=== PATIENT | female | born 1950 | race Caucasian/White ===

== ENCOUNTER → 2020-01-01 08:58 | Outpatient (CLI) | payer MEDICARE, MEDICAID, SELFPAY ==
[2020-01-01 10:03] LABS: Alanine Aminotransferase 21 IU/L (<35); Albumin 4.3 g/dL (3.5-5.0); Albumin Globulin Ratio 1.3 (1.0-2.8); Alkaline Phosphatase 90 U/L (38-126); Aspartate Aminotransferase 32 IU/L (14-36); BUN Creatinine Ratio 24.2 (6-22); Bilirubin Total 0.5 mg/dL (0.2-1.3); Blood Urea Nitrogen 23 mg/dL (7-17); Calcium 9.3 mg/dL (8.4-10.2); Carbon Dioxide 23 mmol/L (22-32); Chloride 105 mmol/L (98-107); Cholesterol 141 mg/dL (140-199); Estimated Glomerular Filt Rate 58.5 mL/min (>60); Globulin 3.2 g/dL (1.7-4.1); Glucose 210 mg/dL (80-110); HDL Cholesterol 50 mg/dL (40-60); HEMOLYSIS < 15 (0-50); LDL Cholesterol Calculated 55 mg/dL (<100); Potassium 4.6 mmol/L (3.4-5.1); Sodium 138 mmol/L (137-145); Total Protein 7.5 g/dL (6.3-8.2); Triglycerides 181 mg/dL (35-150)
== END ==
PROVIDERS: Family Provider Nurse Practitioner Family; PCP Internal Medicine; Referring Provider Internal Medicine; Visit Provider Internal Medicine
DX: E11.42 Type 2 diabetes mellitus with diabetic polyneuropathy (principal); E78.5 Hyperlipidemia, unspecified; I10 Essential (primary) hypertension
CPT/HCPCS: 36415; 80053; 80061; 83036

== ENCOUNTER → 2020-07-14 08:38 | Outpatient (CLI) | payer MEDICARE, MEDICAID, SELFPAY ==
[2020-07-14 10:03] LABS: Hemoglobin A1C% w Est Avg Glu 8.7 % (4.0-6.0)
[2020-07-14 10:11] LABS: Add Manual Diff / Slide Review NO; Basophils Absolute Auto 200 /uL (0-100); Basophils Percent Auto 2.7 % (0-2); Eosinophils Absolute Auto 400 /uL (0-450); Eosinophils Percent Auto 5.8 % (2-4); Hematocrit 36.7 % (36-46); Hemoglobin 12.2 g/dL (12.0-16.0); Lymphocytes Absolute Auto 2600 /uL (1100-4500); Lymphocytes Percent Auto 43.5 % (25-40); Mean Corpuscular HGB Conc 33.1 % (30-36); Mean Corpuscular Hemoglobin 29.5 PG (26-34); Monocytes Absolute Auto 400 /uL (0-900); Monocytes Percent Auto 5.9 % (3-14); Neutrophils Absolute Auto 2500 /uL (1500-7000); Neutrophils Percent Auto 42.1 % (50-75); Platelet Count 116 X10^3/uL (150-400); Red Blood Cell Count 4.13 X10^6/uL (4.0-5.2); Red Cell Distribution Width 15.1 % (11.6-14.8)
[2020-07-14 10:30] LABS: Alanine Aminotransferase 23 IU/L (<35); Albumin 4.2 g/dL (3.5-5.0); Albumin Globulin Ratio 1.4 (1.0-2.8); Alkaline Phosphatase 67 U/L (38-126); Aspartate Aminotransferase 37 IU/L (14-36); BUN Creatinine Ratio 19.8 (6-22); Bilirubin Total 0.5 mg/dL (0.2-1.3); Blood Urea Nitrogen 21 mg/dL (7-17); Calcium 9.2 mg/dL (8.4-10.2); Carbon Dioxide 28 mmol/L (22-32); Chloride 102 mmol/L (98-107); Cholesterol 135 mg/dL (140-199); Estimated Glomerular Filt Rate 51.4 mL/min (>60); Globulin 3.1 g/dL (1.7-4.1); Glucose 166 mg/dL (80-110); HDL Cholesterol 46 mg/dL (40-60); HEMOLYSIS < 15 (0-50); LDL Cholesterol Calculated 50 mg/dL (<100); Potassium 4.3 mmol/L (3.4-5.1); Sodium 139 mmol/L (137-145); Total Protein 7.3 g/dL (6.3-8.2); Triglycerides 197 mg/dL (35-150)
[2020-07-14 11:51] LABS: Creatinine Urine Random 110.4 mg/dL
[2020-07-14 11:56] LABS: Microalbumi Creatinin Ratio Ur 16.3 ug/mg CR (<30); Microalbumin Urine Random 1.8 mg/dL (0-1.6)
== END ==
PROVIDERS: Family Provider Nurse Practitioner Family; PCP Registered Nurse; Referring Provider Registered Nurse; Visit Provider Registered Nurse
DX: E11.42 Type 2 diabetes mellitus with diabetic polyneuropathy (principal); D69.6 Thrombocytopenia, unspecified; E78.5 Hyperlipidemia, unspecified
CPT/HCPCS: 36415; 80053; 80061; 82043; 82570; 83036; 85025

== ENCOUNTER → 2020-08-04 09:25 | Outpatient (CLI) | payer MEDICARE, MEDICAID, SELFPAY ==
[2020-08-04 11:21] LABS: Alanine Aminotransferase 25 IU/L (<35); Albumin 4.5 g/dL (3.5-5.0); Albumin Globulin Ratio 1.3 (1.0-2.8); Alkaline Phosphatase 69 U/L (38-126); Aspartate Aminotransferase 39 IU/L (14-36); Bilirubin Total 0.5 mg/dL (0.2-1.3); Blood Urea Nitrogen 37 mg/dL (7-17); Calcium 9.2 mg/dL (8.4-10.2); Carbon Dioxide 26 mmol/L (22-32); Chloride 104 mmol/L (98-107); Estimated Glomerular Filt Rate 33.4 mL/min (>60); Globulin 3.5 g/dL (1.7-4.1); Glucose 168 mg/dL (80-110); HEMOLYSIS < 15 (0-50); Potassium 4.4 mmol/L (3.4-5.1); Sodium 139 mmol/L (137-145)
== END ==
PROVIDERS: Family Provider Nurse Practitioner Family; PCP Registered Nurse; Referring Provider Registered Nurse; Visit Provider Registered Nurse
DX: R89.9 Unspecified abnormal finding in specimens from other organs, systems and tissues (principal)
CPT/HCPCS: 36415; 80053

== ENCOUNTER 2020-08-04 09:42 | Emergency (ER) | payer MEDICARE, MEDICAID, SELFPAY ==
[2020-08-04 09:53] VITALS: BP 139/78; PULSE 74; RESP 14; TEMP 36.9; O2SAT 96; BMI 43.0
--- NOTE | 2020-08-04 09:54 | ED_ITS ---
HPI - General Adult General Chief complaint: Fall Stated complaint: left shoulder/elbow/neck injury today Time Seen by Provider: 08/04/20 09:53 History of Present Illness HPI narrative: 70-year-old woman with multiple medical problems including gait instability, chronic deconditioning, chronic dizziness with use of walker, diabetes, hypertension, hyperlipidemia, peripheral neuropathy was into the lab this morning to have routine blood drawn. Was feeling slightly dizzy after the blood draw and got all the way out almost to her car when she realized she left her walker in the lab. As she was coming back to get her walker just into the lab she became dizzy enough that she fell. She states that she landed on her knees, right shoulder and elbow and did hit the right parietal side of her head. She is not on blood thinners. She describes her foot basically getting caught on the linoleum and her global generalized weakness and dizziness as the etiology for the fall. She states that she has not had chest pain, dyspnea beyond her baseline, she notes that she is diaphoretic which has been a chronic issue for her and 1 of the reasons for which she is scheduled to see Hematology Oncology in the near future. She describes no specific fevers, abdominal pain, dysuria, headaches. Related Data Home Medications Medication Instructions Recorded Confirmed vitamin E 1,000 unit PO QDAY #0 12/18/16 07/06/20 metoprolol tartrate 25 mg tablet 25 mg PO BID 07/06/20 07/06/20 Previous Rx's Medication Instructions Recorded Lancets dev #100 09/17/12 Glucose: Test Strips 0 str SEE INSTRUCTIONS #100 12/04/12 cetirizine 10 mg PO QDAY #90 tab 05/28/17 pregabalin [Lyrica] 100 mg PO BID #180 cap 07/25/17 diphenhydramine HCl [Benadryl 50 mg PO HS #180 tab 08/20/17 Allergy] lisinopril [Zestril] 10 mg PO QDAY #90 tab 12/17/17 simvastatin 20 mg PO HS #90 tab 12/17/17 metformin 1,000 mg tablet 1,000 mg PO BID 90 Days #180 tab 07/06/20 insulin glargine 100 unit/mL 50 unit SUBCUT HS 90 Days #45 vial 07/16/20 subcutaneous solution Allergies Allergy/AdvReac Type Severity Reaction Status Date / Time amitriptyline [AMITRIPTYLINE] Allergy Mild Verified 08/04/20 10:46 levofloxacin [LEVOFLOXACIN] Allergy Mild Verified 08/04/20 10:46 Sulfa (Sulfonamide Allergy Mild rash Verified 08/04/20 10:46 Antibiotics) [SULFA (SULFONAMIDE ANTIBIOTICS)] adhesive tape [ADHESIVE TAPE] AdvReac Mild rash, Verified 08/04/20 10:46 adheses and pulls off flesh steroid Allergy Mild Uncoded 11/07/17 12:53 Review of Systems Review of Systems ROS Unobtainable: All systems reviewed & are unremarkable except as noted in HPI and below Patient History Medical History (Updated 08/04/20 @ 11:55 by Thalia Khan MD) Chronic pain syndrome (05/20/15) Diabetes Hyperlipidemia Type 2 diabetes mellitus with diabetic polyneuropathy (05/20/15) Surgical History History of carpal tunnel repair History of knee replacement History of repair of hiatal hernia History of spinal fusion S/P total abdominal hysterectomy and bilateral salpingo-oophorectomy Status post appendectomy Status post delivery Status post hemorrhoidectomy Status post laparoscopic cholecystectomy Status post tubal ligation Family History Father Hypertension Stroke Mother Cancer Social History Smoking Status: Former smoker Smoking Status: Former smoker Exam Narrative Exam Narrative: General: Morbid obesity, diaphoretic secondary to effort getting from wheelchair to the bed, complaining of pain in multiple areas, able to speak in full sentences HEENT: Moist mucous membranes, normal sclera with reactive pupils, Neck: No JVD, his tenderness at occipital insertions bilaterally and central tenderness at C7. Respiratory: Lungs are clear to auscultation, no wheezing no rales no rhonchi. Full and symmetrical air movement Cardiac: Regular rate and rhythm no murmurs no bruits Abdomen: Soft, obese, nontender good bowel tones, no flank pain Skin: Diaphoretic, no rashes Neurologic: Globally weak but Grossly neurologically intact with no obvious asymmetries or abnormalities Extremities: well perfused, no contusions to the head. Diffuse tenderness to the right shoulder without contusions or hematoma. Minor bruising to the right elbow and left elbow. Bruising over both knees with well-healed knee replacement scars. Tender to palpation right trochanter without hematoma or abrasions Psych: Cooperative, appropriate insight and affect Initial Vital Signs Initial Vital Signs: Vital Signs Temperature 98.4 F 08/04/20 09:53 Pulse Rate 74 08/04/20 09:53 Respiratory Rate 14 08/04/20 09:53 Blood Pressure 139/78 08/04/20 09:53 Pulse Oximetry 96 08/04/20 09:53 Course Orders Ordered: ED Orders 08/04/20 10:05 XR elbow RT 2V Stat XR shoulder RT min 2V Stat 08/04/20 10:06 CT cervical spine wo con Stat CT head/brain wo con Stat 08/04/20 10:12 XR hip w pel if done RT 2V Stat Discontinued Medications Oxycodone/Acetaminophen (Oxycodone/Acetaminophen 5/325 Tablet) 1 tab PO NOW ONE Stop: 08/04/20 10:13 Last Admin: 08/04/20 10:43 Dose: 1 tab Documented by: JULES Vital Signs Vital signs: Vital Signs - 8 hr 08/04/20 09:53 Temperature 98.4 F Pulse Rate 74 Respiratory Rate 14 Blood Pressure 139/78 Pulse Oximetry 96 Medical Decision Making Imaging Data X-ray pelvis hip right: Radiologist's Impression: FINDINGS: Bones: No fractures or dislocations. Pelvic ring appears intact. No suspicious bony lesions. Mild hip joint space narrowing and periarticular osteophyte formation bilaterally. Soft tissues: The visualized bowel gas pattern is normal. No suspicious soft tissue calcifications. IMPRESSION: Osteoarthritis. No acute fracture. No osseous lesion. If symptoms and/or clinical suspicion for pathology persist, further assessment with repeat, or advanced imaging (e.g., CT, MRI, or bone scan) may be helpful for further assessment. Dictated by: Pravin Ratliff M.D. on 08/04/2020 at 10:53 CT scan - head: Radiologist's Impression: FINDINGS: Image quality: Excellent. CSF spaces: Basal cisterns are patent. No extra-axial fluid collections. The ventricles are symmetric in size and shape. Brain: No intracranial bleeds or masses. There is mild cerebral volume loss for age, with resultant ventricular and sulcal prominence. There are mild periventricular and deep white matter chronic small vessel ischemic changes. There is intracranial internal carotid artery atherosclerosis. Skull and face: Calvarium and visualized facial bones appear intact, without suspicious lesions. Sinuses: Visualized sinuses and mastoids are clear. IMPRESSION: 1. No acute intracranial abnormalities. 2. Mild cerebral volume loss and chronic microvascular ischemic changes. Dictated by: Ranulfo Bustillos M.D. on 08/04/2020 at 10:43 CT - cervical spine: Radiologist's Impression: FINDINGS: Image quality: Excellent. Bones: No fractures or dislocations. Postsurgical changes with cervical spine fusion from C3 to T1. There is loss of cervical lordosis. Mild degenerative disease at C2-C3. Moderate atlantoaxial joint degeneration. Visualized superior ribs are intact. Soft tissues: Prevertebral soft tissues are normal in thickness. No paravertebral hematomas. No apical pneumothoraces. Bilateral carotid artery calcification consistent with atherosclerosis. IMPRESSION: 1. No acute cervical spine injury. 2. Degenerative and postsurgical changes in cervical spine. Dictated by: Ranulfo Bustillos M.D. on 08/04/2020 at 10:53 X-ray shoulder: Radiologist's Impression: FINDINGS: Bones: No fractures or dislocations. No suspicious bony lesions. Visualized ribs appear intact. Periarticular osteophyte formation at the acromioclavicular and glenohumeral joints. Soft tissues: No suspicious soft tissue calcifications. IMPRESSION: Osteoarthritis. No acute fracture. No osseous lesion. If symptoms and/or clinical suspicion for pathology persist, further assessment with repeat, or advanced imaging (e.g., CT, MRI, or bone scan) may be helpful for further assessment. Dictated by: Pravin Ratliff M.D. on 08/04/2020 at 10:53 X-ray elbow: Radiologist's Impression: FINDINGS: Bones: No fractures or dislocations. Mild degenerative joint disease in right elbow. No suspicious bony lesions. Soft tissues: No elbow joint effusion. No suspicious soft tissue calcifications. Soft tissue densities noted around elbow. IMPRESSION: 1. No acute osseous abnormalities visualized. 2. Soft tissue densities around elbow of uncertain clinical significance. Differential diagnosis include artifact, hematoma or mass. Recommend clinical correlation. If clinical symptoms persist or clinical suspicion for pathology is high, a repeat examination in 7-10 days, or advanced imaging such as CT or MRI is suggested for further evaluation. Dictated by: Ranulfo Bustillos M.D. on 08/04/2020 at 11:00 [facility] Narrative Medical decision making narrative: Mechanical fall in a 70-year-old woman happening on hospital property. No fractures. Comes in bruises to exacerbate her chronic pain and issues. She will be safe for home discharge Discharge Plan Departure Patient Disposition: Home Clinical Impression: Fall Qualifiers: Encounter type: initial encounter Qualified Code(s): W19.XXXA - Unspecified fal l, initial encounter Instructions: DI for Contusion Activity Restrictions/Additional Instructions: Thank you for coming in today I am so sorry that you fell. I am glad that you do have a walker to use, it is important to make sure that you keep track of it and actually use it. You can use Tylenol to help with the aches and pains that are likely going to be worse over the next 24 hours. Ice to any of the areas that are particularly sore may also be useful. Please feel free to follow-up with your primary care physician if you are noticing additional issues Prescriptions: No Action Lancets Qty: 100 RF: 0 Glucose: Test Strips 0 str SEE INSTRUCTIONS Qty: 100 RF: 2 vitamin E 1,000 UNIT capsule 1,000 unit PO QDAY Qty: 0 RF: 0 cetirizine 10 MG tablet 10 mg PO QDAY Qty: 90 RF: 3 pregabalin [Lyrica] 100 MG capsule 100 mg PO BID Qty: 180 RF: 1 diphenhydramine HCl [Benadryl Allergy] 25 MG tablet 50 mg PO HS Qty: 180 RF: 1 lisinopril [Zestril] 10 mg tablet 10 mg PO QDAY Qty: 90 RF: 3 simvastatin 20 mg tablet 20 mg PO HS Qty: 90 RF: 3 Lantus U-100 Insulin 100 unit/mL solution 50 unit SUBCUT HS 90 Days Qty: 45 RF: 1 metoprolol tartrate 25 mg tablet 25 mg PO BID RF: 0 metformin 1,000 mg tablet 1,000 mg PO BID 90 Days Qty: 180 RF: 0 Referrals: Jessica Borja ARNP [Primary Care Provider] -
--- NOTE | 2020-08-04 10:05 | DI.RAD.S_ITS ---
PROCEDURE: XR ELBOW RT 2V INDICATIONS: fall TECHNIQUE: 2 views of the elbow were acquired. COMPARISON: [facility], CR, HUMERUS 2V RIGHT, 08/02/2014, 15:05. [facility], CR, ELBOW 3+ VIEWS RIGHT, 08/02/2014, 15:05. [facility], CR, XR HIP W PEL IF DONE RT 2V, 08/04/2020, 10:26. [facility], CR, XR SHOULDER RT MIN 2V, 08/04/2020, 10:26. FINDINGS: Bones: No fractures or dislocations. Mild degenerative joint disease in right elbow. No suspicious bony lesions. Soft tissues: No elbow joint effusion. No suspicious soft tissue calcifications. Soft tissue densities noted around elbow. IMPRESSION: 1. No acute osseous abnormalities visualized. 2. Soft tissue densities around elbow of uncertain clinical significance. Differential diagnosis include artifact, hematoma or mass. Recommend clinical correlation. If clinical symptoms persist or clinical suspicion for pathology is high, a repeat examination in 7-10 days, or advanced imaging such as CT or MRI is suggested for further evaluation. Dictated by: Ranulfo Bustillos M.D. on 08/04/2020 at 11:00 Approved by: Ranulfo Bustillos M.D. on 08/04/2020 at 11:05
--- NOTE | 2020-08-04 10:05 | DI.RAD.S_ITS ---
PROCEDURE: XR SHOULDER RT MIN 2V INDICATIONS: fall, pain TECHNIQUE: 3 views of the shoulder were acquired. COMPARISON: [facility], , SHOULDER MINIMUM 2VIEW RIGHT, 08/02/2014, 15:05. FINDINGS: Bones: No fractures or dislocations. No suspicious bony lesions. Visualized ribs appear intact. Periarticular osteophyte formation at the acromioclavicular and glenohumeral joints. Soft tissues: No suspicious soft tissue calcifications. IMPRESSION: Osteoarthritis. No acute fracture. No osseous lesion. If symptoms and/or clinical suspicion for pathology persist, further assessment with repeat, or advanced imaging (e.g., CT, MRI, or bone scan) may be helpful for further assessment. Dictated by: Pravin Ratliff M.D. on 08/04/2020 at 10:53 Approved by: Pravin Ratliff M.D. on 08/04/2020 at 10:54
--- NOTE | 2020-08-04 10:06 | DI.CT.S_ITS ---
PROCEDURE: CT CERVICAL SPINE WO CON INDICATIONS: fall, tender C7 TECHNIQUE: Noncontrast 3 mm thick sections acquired from the skull base to the T4 level. Sagittal and coronal reformats were then constructed. For radiation dose reduction, the following was used: automated exposure control, adjustment of mA and/or kV according to patient size. COMPARISON: [facility], CT, C-SPINE WITHOUT CONTRAST, 09/11/2014, 8:03. [facility], , SPINE CERVICAL 2 OR 3VW, 06/17/2015, 11:31. FINDINGS: Image quality: Excellent. Bones: No fractures or dislocations. Postsurgical changes with cervical spine fusion from C3 to T1. There is loss of cervical lordosis. Mild degenerative disease at C2-C3. Moderate atlantoaxial joint degeneration. Visualized superior ribs are intact. Soft tissues: Prevertebral soft tissues are normal in thickness. No paravertebral hematomas. No apical pneumothoraces. Bilateral carotid artery calcification consistent with atherosclerosis. IMPRESSION: 1. No acute cervical spine injury. 2. Degenerative and postsurgical changes in cervical spine. Dictated by: Ranulfo Bustillos M.D. on 08/04/2020 at 10:53 Approved by: Ranulfo Bustillos M.D. on 08/04/2020 at 10:59
--- NOTE | 2020-08-04 10:06 | DI.CT.S_ITS ---
PROCEDURE: CT HEAD/BRAIN WO CON INDICATIONS: fall, hit head TECHNIQUE: Noncontrast 4.5 mm thick angled axial sections acquired from the foramen magnum to the vertex, with coronal and sagittal reformats. For radiation dose reduction, the following was used: automated exposure control, adjustment of mA and/or kV according to patient size. COMPARISON: [facility], CT, HEAD WITHOUT CONTRAST, 05/02/2015, 19:56. FINDINGS: Image quality: Excellent. CSF spaces: Basal cisterns are patent. No extra-axial fluid collections. The ventricles are symmetric in size and shape. Brain: No intracranial bleeds or masses. There is mild cerebral volume loss for age, with resultant ventricular and sulcal prominence. There are mild periventricular and deep white matter chronic small vessel ischemic changes. There is intracranial internal carotid artery atherosclerosis. Skull and face: Calvarium and visualized facial bones appear intact, without suspicious lesions. Sinuses: Visualized sinuses and mastoids are clear. IMPRESSION: 1. No acute intracranial abnormalities. 2. Mild cerebral volume loss and chronic microvascular ischemic changes. Dictated by: Ranulfo Bustillos M.D. on 08/04/2020 at 10:43 Approved by: Ranulfo Bustillos M.D. on 08/04/2020 at 10:45
--- NOTE | 2020-08-04 10:12 | DI.RAD.S_ITS ---
PROCEDURE: XR HIP W PEL IF DONE RT 2V INDICATIONS: fall TECHNIQUE: AP pelvis with lateral view(s) of the right hip(s). COMPARISON: None. FINDINGS: Bones: No fractures or dislocations. Pelvic ring appears intact. No suspicious bony lesions. Mild hip joint space narrowing and periarticular osteophyte formation bilaterally. Soft tissues: The visualized bowel gas pattern is normal. No suspicious soft tissue calcifications. IMPRESSION: Osteoarthritis. No acute fracture. No osseous lesion. If symptoms and/or clinical suspicion for pathology persist, further assessment with repeat, or advanced imaging (e.g., CT, MRI, or bone scan) may be helpful for further assessment. Dictated by: rPavin Ratliff M.D. on 08/04/2020 at 10:53 Approved by: Pravin Ratliff M.D. on 08/04/2020 at 10:53
[2020-08-04] MEDS: OXYCODONE/ACETAMINOPHEN 5/325 TABLET 1 TAB PO (10:43)
[2020-08-04 12:33] VITALS: BP 122/58; PULSE 63; RESP 18; O2SAT 96
== END 2020-08-04 12:35 | disposition home or self-care (01) ==
PROVIDERS: Emergency Provider Emergency Medicine; Family Provider Nurse Practitioner Family; PCP Registered Nurse
DX: R42 Dizziness and giddiness (principal); S50.01XA Contusion of right elbow, initial encounter; S49.91XA Unspecified injury of right shoulder and upper arm, initial encounter; W18.30XA Fall on same level, unspecified, initial encounter; Y92.232 Corridor of hospital as the place of occurrence of the external cause; D69.6 Thrombocytopenia, unspecified
CPT/HCPCS: 70450; 72125; 73030; 73070; 73502; 99214; 99284

== ENCOUNTER → 2020-08-25 16:20 | Oncology outpatient (ONC) | payer MEDICARE, MEDICAID, SELFPAY ==
[2020-08-04 15:27] VITALS: BP 147/81; PULSE 80; RESP 18; TEMP 36.8; O2SAT 96
--- NOTE | 2020-08-04 15:51 | ONC.CONS ---
History of Present Illness - Data of Consult Primary Care Provider: ALTON Gibbons - Consult Narrative Narrative: Shae Francis is a 70 year old female who is referred for further evaluation of thrombocytopenia. Review of her records shows that she was 1st noted to have a low platelet count in September of 2009. Since that time she has had some platelet counts in the 150 to 184834 range but the vast majority of her platelets have been between 100 and 150,000. She had transient worsening in April of 2015 when she got down as low as 53,000 but from mid April 2015 on she has not had any counts below 100,000. Her white count has generally been normal. She has been anemic at times but most of her hemoglobins have been normal, as well. In June of 2020 she had a CBC with a white count of 6000, hemoglobin 12.2 hematocrit 36.7 and platelets a [id number]. She is now referred for hematology consultation. She denies issues with bleeding from her nose, gums, bowels or urine. She does not have a history of easy bruising. She does not recall ever being treated for thrombocytopenia. She has a chronic pain syndrome for which she is on Lyrica. She has a cough that she attributes to smoking marijuana for her pain. She states that she had been generally feeling good for the last several months but has been more tired over the past month. She denies other new pain, bleeding, localized weakness, fever, chills, nausea, vomiting or shortness of breath. All other systems are negative. Past medical history 1. Previous surgeries include carpal tunnel release, bilateral knee replacements, hiatal hernia repair, spinal fusion, 3 neck surgeries, JULIAN/BSO, appendectomy, section, hemorrhoidectomy, cholecystectomy and tubal ligation 2. There is a family history of liver cancer in her mother but no other family history of blood disorder or malignancy 3. Diabetes 4. Hyperlipidemia 5. Chronic pain syndrome 6. High blood pressure 7. She is a former 1-2 pack-a-day smoker who quit in December of 2017. She is a former drinker who quit 30 years ago. 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 CC: Danish Guerrero MD Home Medications and Allergies Home Medications Medication Instructions Recorded Confirmed Type Lancets dev #100 09/17/12 07/06/20 Rx Glucose: Test Strips 0 str SEE INSTRUCTIONS #100 12/04/12 08/04/20 Rx cetirizine 10 mg PO QDAY #90 tab 05/28/17 08/04/20 Rx pregabalin [Lyrica] 100 mg PO BID #180 cap 07/25/17 08/04/20 Rx diphenhydramine HCl [Benadryl 50 mg PO HS #180 tab 08/20/17 07/06/20 Rx Allergy] lisinopril [Zestril] 10 mg PO QDAY #90 tab 12/17/17 08/04/20 Rx simvastatin 20 mg PO HS #90 tab 12/17/17 08/04/20 Rx metformin 1,000 mg tablet 1,000 mg PO BID 90 Days #180 tab 07/06/20 08/04/20 Rx metoprolol tartrate 25 mg tablet 25 mg PO BID 07/06/20 08/04/20 History insulin glargine 100 unit/mL 50 unit SUBCUT HS 90 Days #45 vial 07/16/20 08/04/20 Rx subcutaneous solution ibuprofen [Advil] 200 mg PRN PRN 08/04/20 08/04/20 History [id number]-[id number] acid-lutein [Centrum 1 tab PO DAILY 08/04/20 08/04/20 History Silver] Allergies Allergy/AdvReac Type Severity Reaction Status Date / Time amitriptyline [AMITRIPTYLINE] Allergy Mild Verified 08/04/20 10:46 levofloxacin [LEVOFLOXACIN] Allergy Mild Verified 08/04/20 10:46 Sulfa (Sulfonamide Allergy Mild rash Verified 08/04/20 10:46 Antibiotics) [SULFA (SULFONAMIDE ANTIBIOTICS)] adhesive tape [ADHESIVE TAPE] AdvReac Mild rash, Verified 08/04/20 10:46 adheses and pulls off flesh steroid Allergy Mild Uncoded 11/07/17 12:53 Medical History - Medical, Surgical, Family History Medical History: Medical History (Last Updated 08/04/20 @ 10:18 by Thalia Khan MD) Chronic pain syndrome Onset Date: 05/20/15 Diabetes Hyperlipidemia Type 2 diabetes mellitus with diabetic polyneuropathy Onset Date: 05/20/15 Surgical History: Surgical History (Last Reviewed 08/04/20 @ 10:16 by Thalia Khan MD) History of carpal tunnel repair History of knee replacement History of repair of hiatal hernia History of spinal fusion S/P total abdominal hysterectomy and bilateral salpingo-oophorectomy Status post appendectomy Status post delivery Status post hemorrhoidectomy Status post laparoscopic cholecystectomy Status post tubal ligation Family History: Family History (Last Reviewed 08/04/20 @ 10:16 by Thalia Khan MD) Father Hypertension Stroke Mother Cancer - Social History Smoking Status: Former smoker Review of Systems - Patient Self-Reported Symptoms SR Constitution: Fever, Chills, Fatigue/Malaise, Night Sweats SR ears, nose, mouth, throat issues: Cough SR respiratory issues: Cough SR Neuro issues: Headache Exam Vital signs: Vital Signs Temp Pulse Resp BP Pulse Ox 08/04/20 15:27 98.2 F 80 18 147/81 H 96 Intake and Output 08/03/20 08/04/20 08/04/20 23:59 07:59 15:59 Other: Weight 107.9 kg Patient Weight 08/04/20 23:59 Weight 107.9 kg Narrative: She was awake, alert and oriented x3. She walked with a walker. There was no lymphadenopathy in the cervical, supraclavicular axillary regions. Lungs were clear without wheezes or rales. Heart showed a regular rate and rhythm without murmur, gallop or rub. The abdomen was soft and nontender without organomegaly or masses. Results - Imaging Additional studies: Procedures ANESTH INJEC PERIPH NERV (10/20/09) Closure of skin and subcutaneous tissue of other sites (07/08/14) Excision of intervertebral disc (09/04/14) Fusion of Lumbar Vertebral Joint with Interbody Fusion Device, Anterior Approach, Anterior Column, Open Approach (08/17/15) Fusion of Lumbosacral Joint with Interbody Fusion Device, Posterior Approach, Anterior Column, Open Approach (08/17/15) Fusion or refusion of 2-3 vertebrae (09/04/14) Injection or infusion of other therapeutic or prophylactic substance (07/11/14) Insertion of Endotracheal Airway into Trachea, Via Natural or Artificial Opening (05/02/15) Insertion of Infusion Device into Left Internal Jugular Vein, Percutaneous Approach (05/02/15) Insertion of interbody spinal fusion device (09/04/14) MANUAL RUPT JOINT ADHES (10/20/09) Other cervical fusion of the anterior column, anterior technique (09/04/14) Other operations on bone marrow (09/04/14) Other vaccination and inoculation (11/27/12) Respiratory Ventilation, 24-96 Consecutive Hours (05/02/15) TOTAL KNEE REPLACEMENT (10/20/09) Venous catheterization, not elsewhere classified (09/04/14) Assessment and Plan (1) Thrombocytopenia Status: Acute Ms. Francis has thrombocytopenia dating back to 2008. Her counts prior to that were normal. Since 2008 most of her counts have been between 100 and 150,000. She does not have a clinical bleeding history or current clinical bleeding diathesis. Her other blood elements have generally been normal and were normal on her most recent CBCs. We discussed potential causes of this. She is not on any medications that would be likely culprits that should this time frame. She does not have any clinical findings that would suggest an underlying lymphoproliferative disorder or bone marrow infiltrative process. A myelodysplastic syndrome can result in thrombocytopenia but this has been present for almost 11 years without significant deterioration of her red cells or white cells making it unlikely. Chronic ITP can present in this fashion. This is a diagnosis of exclusion but is not an uncommon condition. Anti phospholipid antibody syndrome can also present with thrombocytopenia. She does not have any history of clots but screening coagulation studies would be appropriate. New She will have screening labs done today. If there are any abnormalities will pursue them accordingly. She will return in about 2 weeks to review results. If her screening labs are normal, observation would likely be the best approach. I think the yield of bone marrow examination would be very low unless we see something in her screening labs to indicate an issue. Impression 1. Mild thrombocytopenia dating to at least October of 2008 with fluctuating platelet counts since then, most counts between 100 and 150,000 2. White count and white cell differential have generally been normal. 3. She has had episodic anemia but none recently 4. No clinical findings to suggest an underlying lymphoproliferative disorder 5. She is on no obvious medications that would result in this condition 6. She does not have a clinical bleeding diathesis Recommendations: 1. CBC with manual diff 2. Review of peripheral smear 3. Vitamin B12 and folate levels 4. Coagulation studies 5. Return afterwards for review of results I spent 14 minutes in preparation in chart review, 28 minutes with the patient, 4 minutes ordering tests, and 9 minutes in documentation for total of 55 minutes.
--- NOTE | 2020-08-05 14:13 | ONC.SCHED ---
Mary working on PA for specialty labs
[2020-08-06 09:16] LABS: Hematocrit 38.4 % (36-46); Hemoglobin 12.8 g/dL (12.0-16.0); Mean Corpuscular HGB Conc 33.4 % (30-36); Mean Corpuscular Hemoglobin 33.1 PG (26-34); Mean Corpuscular Volume 99.1 fL (80-100); Platelet Count 137 X10^3/uL (150-400); Red Blood Cell Count 3.87 X10^6/uL (4.0-5.2); Red Cell Distribution Width 15.1 % (11.6-14.8); Reticulocyte Count, Percent 2.2 % (1.06-2.63); White Blood Cell Count 6.9 X10^3/uL (4.5-11.0)
[2020-08-06 09:22] LABS: Fibrinogen 319 mg/dL (211-428); Prothrombin Time 11.5 SECONDS (10.1-12.7)
[2020-08-06 09:24] LABS: PTT Partial Thromboplastin Tim 31 SECONDS (26.4-36.2)
[2020-08-06 09:35] LABS: Neutrophils Absolute Manual 3243 /uL (3000-5900); RBC Morphology Normal Morphology; Total Cells Counted 100
[2020-08-06 10:31] LABS: Folate > 20.0 ng/mL (2.76-20.0); Vitamin B12 751 pg/mL (239-931)
--- NOTE | 2020-08-10 13:36 | ONC.SCHED ---
Patient had specialty labs drawn without PA checked. Went straight to the lab before I could check them.
[2020-08-25 16:09] VITALS: BP 115/71; PULSE 65; RESP 18; TEMP 36.6; O2SAT 96
--- NOTE | 2020-08-25 17:53 | ONC.PN ---
PN -Subjective Interval history: Shae Francis is a 70 year old female who presents for follow-up of thrombocytopenia. Review of her records shows that she was 1st noted to have a low platelet count in September of 2009. Since that time she has had some platelet counts in the 150 to [id number] range but the vast majority of her platelets have been between 100 and 150,000. She had transient worsening in April of 2015 when she got down as low as 53,000 but from mid April 2015 on she has not had any counts below 100,000. Her white count has generally been normal. She has been anemic at times but most of her hemoglobins have been normal, as well. In June of 2020 she had a CBC with a white count of 6000, hemoglobin 12.2 hematocrit 36.7 and platelets a [id number]. She was referred for hematology consultation, had testing done, and returns today to review results. She denies issues with bleeding from her nose, gums, bowels or urine. She does not have a history of easy bruising. She does not recall ever being treated for thrombocytopenia. She has a chronic pain syndrome for which she is on Lyrica. She has a cough that she attributes to smoking marijuana for her pain. She states that she had been generally feeling good for the last several months but has been more tired over the past month. She denies other new pain, bleeding, localized weakness, fever, chills, nausea, vomiting or shortness of breath. All other systems are negative. Past medical history 1. Previous surgeries include carpal tunnel release, bilateral knee replacements, hiatal hernia repair, spinal fusion, 3 neck surgeries, JULIAN/BSO, appendectomy, section, hemorrhoidectomy, cholecystectomy and tubal ligation 2. There is a family history of liver cancer in her mother but no other family history of blood disorder or malignancy 3. Diabetes 4. Hyperlipidemia 5. Chronic pain syndrome 6. High blood pressure 7. She is a former 1-2 pack-a-day smoker who quit in December of 2017. She is a former drinker who quit 30 years ago. 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 - Patient Self-Reported Symptoms SR Constitution: Chills, Fatigue/Malaise, Night Sweats SR ears, nose, mouth, throat issues: Cough SR respiratory issues: Cough, Shortness of breath SR Gastrointestinal issues: Poor or no appetite, Diarrhea SR Neuro issues: Headache SR Endocrine issues: Hot flashes Home Medications and Allergies Home Medications Medication Instructions Recorded Confirmed Type Lancets dev #100 09/17/12 07/06/20 Rx Glucose: Test Strips 0 str SEE INSTRUCTIONS #100 12/04/12 08/25/20 Rx cetirizine 10 mg PO QDAY #90 tab 05/28/17 08/04/20 Rx pregabalin [Lyrica] 100 mg PO BID #180 cap 07/25/17 08/25/20 Rx diphenhydramine HCl [Benadryl 50 mg PO HS #180 tab 08/20/17 08/25/20 Rx Allergy] lisinopril [Zestril] 10 mg PO QDAY #90 tab 12/17/17 08/25/20 Rx simvastatin 20 mg PO HS #90 tab 12/17/17 08/25/20 Rx metoprolol tartrate 25 mg tablet 25 mg PO BID 07/06/20 08/25/20 History ibuprofen [Advil] 200 mg PRN PRN 08/04/20 08/25/20 History [id number] acid-lutein [Centrum 1 tab PO DAILY 08/04/20 08/25/20 History Silver] insulin glargine 100 unit/mL 55 unit SUBCUT HS 90 Days #49.5 08/05/20 08/25/20 Rx subcutaneous solution vial metformin 1,000 mg tablet 1,000 mg PO DAILY 90 Days #90 tab 08/05/20 08/25/20 Rx Allergies Allergy/AdvReac Type Severity Reaction Status Date / Time amitriptyline [AMITRIPTYLINE] Allergy Mild Verified 08/04/20 10:46 levofloxacin [LEVOFLOXACIN] Allergy Mild Verified 08/04/20 10:46 Sulfa (Sulfonamide Allergy Mild rash Verified 08/04/20 10:46 Antibiotics) [SULFA (SULFONAMIDE ANTIBIOTICS)] adhesive tape [ADHESIVE TAPE] AdvReac Mild rash, Verified 08/04/20 10:46 adheses and pulls off flesh steroid Allergy Mild Uncoded 11/07/17 12:53 Exam Vital signs: Vital Signs Temp Pulse Resp BP Pulse Ox 08/25/20 16:09 98 F 65 18 115/71 96 Intake and Output 08/25/20 08/25/20 08/25/20 07:59 15:59 23:59 Other: Weight 106 kg Patient Weight 08/25/20 23:59 Weight 106 kg Narrative: She was awake, alert and oriented x3. She walked with a walker. Results - Labs Laboratory Last Values WBC 6.9 X10^3/uL (4.5-11.0) 08/06/20 08:37 RBC 3.87 X10^6/uL (4.0-5.2) L 08/06/20 08:37 Hgb 12.8 g/dL (12.0-16.0) 08/06/20 08:37 Hct 38.4 % (36-46) 08/06/20 08:37 MCV 99.1 fL (80-100) 08/06/20 08:37 MCH 33.1 PG (26-34) 08/06/20 08:37 MCHC 33.4 % (30-36) 08/06/20 08:37 RDW 15.1 % (11.6-14.8) H 08/06/20 08:37 Plt Count 137 X10^3/uL (150-400) L 08/06/20 08:37 Total Counted 100 08/06/20 08:37 Seg Neutrophils % 46.0 % (38-70) 08/06/20 08:37 Band Neutrophils % 1.0 % (3-7) L 08/06/20 08:37 Lymphocytes % (Manual) 43.0 % (25-45) 08/06/20 08:37 Atypical Lymphs % 4.0 % (-0) H 08/06/20 08:37 Monocytes % (Manual) 1.0 % (2-11) L 08/06/20 08:37 Eosinophils % (Manual) 4.0 % (2-4) 08/06/20 08:37 Basophils % (Manual) 1.0 % (0-1) 08/06/20 08:37 Neutrophils # (Manual) 3243 /uL (4544-8439) 08/06/20 08:37 Plt Morphology Comment 08/06/20 08:37 RBC Morphology Normal morphology 08/06/20 08:37 Smear Path Review 08/06/20 08:37 Percent Retic 2.2 % (1.06-2.63) 08/06/20 08:37 PT 11.5 SECONDS (10.1-12.7) 08/06/20 08:37 INR 1.0 (0.9-1.3) 08/06/20 08:37 APTT 31 SECONDS (26.4-36.2) 08/06/20 08:37 Fibrinogen 319 mg/dL (211-428) 08/06/20 08:37 Vitamin B12 751 pg/mL (239-931) 08/06/20 08:37 Folate > 20.0 ng/mL (2.76-20.0) H 08/06/20 08:37 - Imaging Additional studies: Procedures ANESTH INJEC PERIPH NERV (10/20/09) Closure of skin and subcutaneous tissue of other sites (07/08/14) Excision of intervertebral disc (09/04/14) Fusion of Lumbar Vertebral Joint with Interbody Fusion Device, Anterior Approach, Anterior Column, Open Approach (08/17/15) Fusion of Lumbosacral Joint with Interbody Fusion Device, Posterior Approach, Anterior Column, Open Approach (08/17/15) Fusion or refusion of 2-3 vertebrae (09/04/14) Injection or infusion of other therapeutic or prophylactic substance (07/11/14) Insertion of Endotracheal Airway into Trachea, Via Natural or Artificial Opening (05/02/15) Insertion of Infusion Device into Left Internal Jugular Vein, Percutaneous Approach (05/02/15) Insertion of interbody spinal fusion device (09/04/14) MANUAL RUPT JOINT ADHES (10/20/09) Other cervical fusion of the anterior column, anterior technique (09/04/14) Other operations on bone marrow (09/04/14) Other vaccination and inoculation (11/27/12) Respiratory Ventilation, 24-96 Consecutive Hours (05/02/15) TOTAL KNEE REPLACEMENT (10/20/09) Venous catheterization, not elsewhere classified (09/04/14) Assessment and Plan (1) Thrombocytopenia Status: Acute Ms. Francis has thrombocytopenia dating back to 2008. Her counts prior to that were normal. Since 2008 most of her counts have been between 100 and 150,000. She does not have a clinical bleeding history or current clinical bleeding diathesis. Her other blood elements have generally been normal and were normal on her most recent CBCs. Screening laboratory studies including vitamin B12, folic acid, reticulocyte count, and peripheral smear review are normal. Her white cell differential shows 1 band in for atypical lymphocytes but her overall lymphocyte percentage and absolute lymphocyte count are normal. Overall, she does not have evidence of a significant underlying bone marrow disorder or lymphoproliferative disorder to explain her mild, asymptomatic, chronically stable thrombocytopenia. I told her that I did not think any further workup was indicated at this time. She should have an annual CBC. Should her counts worsen over time would be happy to see her back at any point. She would like to have this done under the direction of her primary physician and I will send a copy of today's note to her. Impression 1. Mild thrombocytopenia dating to at least October of 2008 with fluctuating platelet counts since then, most counts between 100 and 150,000 2. White count and white cell differential have generally been normal. 3. She has had episodic anemia but none recently 4. No clinical findings to suggest an underlying lymphoproliferative disorder 5. Screening laboratories are unrevealing Recommendations: 1. No additional workup is indicated at this time 2. She should have an annual CBC would like to have this done under the direction of her primary care provider 3. Although no specific return appointment has been scheduled to this office I would be happy to see her again at any time in the future. I spent 8 minutes in preparation in chart review, 18 minutes with the patient, and 6 minutes in documentation for total of 32 minutes.
== END ==
PROVIDERS: Family Provider Nurse Practitioner Family; PCP Registered Nurse; Referring Provider Registered Nurse; Visit Provider Internal Medicine
DX: D69.6 Thrombocytopenia, unspecified (principal); E11.9 Type 2 diabetes mellitus without complications; I10 Essential (primary) hypertension; E78.5 Hyperlipidemia, unspecified; G89.4 Chronic pain syndrome; Z79.4 Long term (current) use of insulin; Z87.891 Personal history of nicotine dependence
CPT/HCPCS: 36415; 82607; 82746; 85025; 85045; 85384; 85610; 85730; 99204; 99214

== ENCOUNTER → 2020-08-27 11:04 | Outpatient (CLI) | payer MEDICARE, MEDICAID, SELFPAY ==
[2020-08-27] MEDS: COVID-19 VACC #1, MRNA(MOD) 100 MCG/0.5 ML VIAL IM (11:11)
== END ==
PROVIDERS: Family Provider Nurse Practitioner Family; PCP Registered Nurse; Visit Provider Internal Medicine
DX: Z23 Encounter for immunization (principal)
CPT/HCPCS: 0011A; 91301

== ENCOUNTER → 2020-09-21 09:25 | Outpatient (CLI) | payer MEDICARE, MEDICAID, SELFPAY ==
[2020-09-21 10:25] LABS: Cholesterol 154 mg/dL (140-199); HDL Cholesterol 46 mg/dL (40-60); LDL Cholesterol Calculated 70 mg/dL (<100); Triglycerides 188 mg/dL (35-150)
== END ==
PROVIDERS: Family Provider Nurse Practitioner Family; PCP Registered Nurse; Referring Provider Registered Nurse; Visit Provider Registered Nurse
DX: E11.42 Type 2 diabetes mellitus with diabetic polyneuropathy (principal); E78.5 Hyperlipidemia, unspecified
CPT/HCPCS: 36415; 80061; 83036

== ENCOUNTER → 2020-09-24 12:01 | Outpatient (CLI) | payer MEDICARE, MEDICAID, SELFPAY ==
[2020-09-24] MEDS: COVID-19 VACC #2, MRNA(MOD) 100 MCG/0.5 ML VIAL IM (12:11)
== END ==
PROVIDERS: Family Provider Nurse Practitioner Family; PCP Registered Nurse; Visit Provider Internal Medicine
DX: Z23 Encounter for immunization (principal)
CPT/HCPCS: 0012A; 91301

== ENCOUNTER → 2020-10-06 13:06 | Outpatient (CLI) | payer MEDICARE, MEDICAID, SELFPAY ==
[2020-10-06 14:19] LABS: BUN Creatinine Ratio 18.2 (6-22); Blood Urea Nitrogen 20 mg/dL (7-17); Calcium 9.7 mg/dL (8.4-10.2); Carbon Dioxide 28 mmol/L (22-32); Chloride 102 mmol/L (98-107); Creatine Kinase 74 U/L (30-135); Estimated Glomerular Filt Rate 49.2 mL/min (>60); Glucose 326 mg/dL (80-110); HEMOLYSIS < 15 (0-50); Phosphorous 4.7 mg/dL (2.8-4.1); Potassium 4.5 mmol/L (3.4-5.1); Sodium 137 mmol/L (137-145); Uric Acid 6.2 mg/dL (2.5-6.2)
[2020-10-07 08:27] LABS: Parathyroid Hormone Int 52 pg/mL (15-65)
== END ==
PROVIDERS: Family Provider Nurse Practitioner Family; PCP Registered Nurse; Referring Provider Internal Medicine Nephrology; Visit Provider Internal Medicine Nephrology
DX: N17.9 Acute kidney failure, unspecified (principal)
CPT/HCPCS: 36415; 80048; 81001; 82043; 82550; 82570; 83970; 84100; 84300; 84550; 87086

== ENCOUNTER → 2020-10-06 17:37 | Outpatient (CLI) | payer MEDICARE, MEDICAID, SELFPAY ==
[2020-10-06 17:44] LABS: RBC Urine None Seen (0-5/HPF)
[2020-10-06 18:05] LABS: Appearance Urine UA CLEAR; Bilirubin Urine UA NEGATIVE (NEGATIVE); Color Urine UA YELLOW; Glucose Urine UA 1+ g/dL (Negative); Ketones Urine UA NEGATIVE (NEGATIVE); Leukocyte Esterase Urine UA 1+ (NEGATIVE); Nitrite Urine UA NEGATIVE (Negative); Occult Blood Urine UA NEGATIVE (Negative); Protein Urine UA NEGATIVE (Negative); Specific Gravity Urine UA >=1.030 (1.000-1.035); Urobilinogen Urine UA 0.2 E.U./dL (0.2)
[2020-10-06 18:12] LABS: Amorphous Sediment Urine 1+; Squamous Epithelial Cell Urine 5-10 /HPF (0-5/HPF); WBC Urine 10-30/HPF (0-5/HPF)
[2020-10-06 18:13] LABS: Bacteria Urine Moderate (10-30); Culture Indicated Urine Specimen Cultured; Mucus Urine 1+ (Negative)
[2020-10-06 18:45] LABS: Creatinine Urine Random 142.4 mg/dL; Sodium Urine Random 143 mmol/L (30-90)
[2020-10-06 18:50] LABS: Microalbumi Creatinin Ratio Ur 26.6 ug/mg CR (<30); Microalbumin Urine Random 3.8 mg/dL (0-1.6)
== END ==
PROVIDERS: Family Provider Nurse Practitioner Family; PCP Registered Nurse; Referring Provider Physician Assistant; Visit Provider Physician Assistant
DX: N17.9 Acute kidney failure, unspecified (principal)
CPT/HCPCS: 81001; 82043; 82570; 84300; 87086

== ENCOUNTER → 2021-01-11 08:21 | Outpatient (CLI) | payer MEDICARE, MEDICAID, SELFPAY ==
[2021-01-11 10:14] LABS: Alanine Aminotransferase 20 IU/L (<35); Albumin 4.3 g/dL (3.5-5.0); Albumin Globulin Ratio 1.4 (1.0-2.8); Alkaline Phosphatase 63 U/L (38-126); Aspartate Aminotransferase 36 IU/L (14-36); BUN Creatinine Ratio 18.5 (6-22); Bilirubin Total 0.7 mg/dL (0.2-1.3); Blood Urea Nitrogen 22 mg/dL (7-17); Calcium 9.7 mg/dL (8.4-10.2); Carbon Dioxide 24 mmol/L (22-32); Chloride 105 mmol/L (98-107); Cholesterol 119 mg/dL (140-199); Glucose 142 mg/dL (80-110); HDL Cholesterol 42 mg/dL (40-60); HEMOLYSIS < 15 (0-50); LDL Cholesterol Calculated 33 mg/dL (<100); Potassium 4.2 mmol/L (3.4-5.1); Sodium 140 mmol/L (137-145); Total Protein 7.3 g/dL (6.3-8.2); Triglycerides 222 mg/dL (35-150)
[2021-01-11 16:06] LABS: Bilirubin Urine UA NEGATIVE (NEGATIVE); Color Urine UA YELLOW; Glucose Urine UA NEGATIVE (Negative); Ketones Urine UA NEGATIVE (NEGATIVE); Leukocyte Esterase Urine UA 2+ (NEGATIVE); Nitrite Urine UA NEGATIVE (Negative); Occult Blood Urine UA TRACE-LYSED (Negative); Protein Urine UA NEGATIVE (Negative); Specific Gravity Urine UA 1.025 (1.000-1.035); Urobilinogen Urine UA 0.2 E.U./dL (0.2)
[2021-01-11 16:14] LABS: Appearance Urine UA Slightly Cloudy
[2021-01-11 16:15] LABS: Amorphous Sediment Urine 1+; Bacteria Urine Many (>30); RBC Urine 0-1/HPF (0-5/HPF); Squamous Epithelial Cell Urine 5-10 /HPF (0-5/HPF); WBC Urine 30-100/HPF (0-5/HPF)
[2021-01-11 16:16] LABS: Culture Indicated Urine Specimen Cultured; Mucus Urine 1+ (Negative)
[2021-01-11 16:35] LABS: Creatinine Urine Random 167.6 mg/dL
[2021-01-11 16:38] LABS: Microalbumi Creatinin Ratio Ur 11.3 ug/mg CR (<30); Microalbumin Urine Random 1.9 mg/dL (0-1.6)
[2021-01-14 11:10] LABS: Renin Activity 0.945 ng/mL/hr (0.167-5.380)
== END ==
PROVIDERS: Family Provider Nurse Practitioner Family; PCP Student in an Organized Health Care Education/Training Program; Referring Provider Internal Medicine Endocrinology, Diabetes & Metabolism; Visit Provider Internal Medicine Endocrinology, Diabetes & Metabolism
DX: N17.9 Acute kidney failure, unspecified (principal); E11.42 Type 2 diabetes mellitus with diabetic polyneuropathy; Z79.4 Long term (current) use of insulin
CPT/HCPCS: 36415; 80053; 80061; 81001; 82043; 82088; 82570; 83036; 83835; 84244; 87077; 87086; 87186

== ENCOUNTER → 2021-01-13 13:11 | Outpatient (CLI) | payer MEDICARE, MEDICAID, SELFPAY ==
[2021-01-18 19:07] LABS: Cortisol Fr ug/24hr urine 10 ug/24 hr (6-42); Cortisol, Free, Urine 17 ug/L (Undefined)
== END ==
PROVIDERS: Family Provider Nurse Practitioner Family; PCP Student in an Organized Health Care Education/Training Program; Referring Provider Internal Medicine Endocrinology, Diabetes & Metabolism; Visit Provider Internal Medicine Endocrinology, Diabetes & Metabolism
DX: E11.42 Type 2 diabetes mellitus with diabetic polyneuropathy (principal); Z79.4 Long term (current) use of insulin; N17.9 Acute kidney failure, unspecified
CPT/HCPCS: 82530

== ENCOUNTER → 2021-03-02 15:52 | Outpatient (CLI) | payer MEDICARE, MEDICAID, SELFPAY ==
[2021-03-02 16:11] LABS: Add Manual Diff / Slide Review NO; Basophils Absolute Auto 0 /uL (0-100); Basophils Percent Auto 0.2 % (0-2); Eosinophils Absolute Auto 400 /uL (0-450); Eosinophils Percent Auto 4.8 % (2-4); Hematocrit 38.9 % (36-46); Hemoglobin 12.8 g/dL (12.0-16.0); Lymphocytes Absolute Auto 3200 /uL (1100-4500); Lymphocytes Percent Auto 41.1 % (25-40); Mean Corpuscular HGB Conc 33.1 % (30-36); Mean Corpuscular Hemoglobin 29.1 PG (26-34); Monocytes Absolute Auto 400 /uL (0-900); Monocytes Percent Auto 4.7 % (3-14); Neutrophils Absolute Auto 3900 /uL (1500-7000); Neutrophils Percent Auto 49.2 % (50-75); Platelet Count 125 X10^3/uL (150-400); Red Blood Cell Count 4.42 X10^6/uL (4.0-5.2); Red Cell Distribution Width 15.8 % (11.6-14.8); White Blood Cell Count 7.8 X10^3/uL (4.5-11.0)
[2021-03-02 16:42] LABS: Alanine Aminotransferase 23 IU/L (<35); Albumin 4.5 g/dL (3.5-5.0); Albumin Globulin Ratio 1.2 (1.0-2.8); Alkaline Phosphatase 52 U/L (38-126); Aspartate Aminotransferase 46 IU/L (14-36); BUN Creatinine Ratio 21.2 (6-22); Bilirubin Total 0.7 mg/dL (0.2-1.3); Blood Urea Nitrogen 31 mg/dL (7-17); Calcium 10.1 mg/dL (8.4-10.2); Carbon Dioxide 23 mmol/L (22-32); Chloride 107 mmol/L (98-107); Creatine Kinase 146 U/L (30-135); Estimated Glomerular Filt Rate 35.5 mL/min (>60); Globulin 3.7 g/dL (1.7-4.1); Glucose 109 mg/dL (80-110); HEMOLYSIS < 15 (0-50); Potassium 4.8 mmol/L (3.4-5.1); Sodium 141 mmol/L (137-145); Total Protein 8.2 g/dL (6.3-8.2)
[2021-03-02 16:53] LABS: NT-proBNP (BNP-Adult 18+) 155 pg/mL (<125); Troponin I < 0.012 ng/mL (0.01-0.034)
[2021-03-02 16:58] LABS: CKMB % Relative Index 0.3 % (1.5-5.0); Creatine Kinase MB 0.39 ng/mL (<2.37)
== END ==
PROVIDERS: Family Provider Nurse Practitioner Family; PCP Student in an Organized Health Care Education/Training Program; Referring Provider Student in an Organized Health Care Education/Training Program; Visit Provider Student in an Organized Health Care Education/Training Program
DX: R11.2 Nausea with vomiting, unspecified (principal); R53.83 Other fatigue
CPT/HCPCS: 36415; 80053; 82550; 82553; 83880; 84484; 85025

== ENCOUNTER → 2021-03-07 12:20 | Outpatient (CLI) | payer MEDICARE, MEDICAID, SELFPAY ==
[2021-03-07 13:10] LABS: Bacteria Urine None Seen; RBC Urine None Seen (0-5/HPF)
[2021-03-07 14:04] LABS: Hemoglobin A1C% w Est Avg Glu 5.3 % (4.0-6.0)
[2021-03-07 14:40] LABS: Appearance Urine UA SL CLOUDY; Bilirubin Urine UA NEGATIVE (NEGATIVE); Color Urine UA YELLOW; Glucose Urine UA TRACE g/dL (Negative); Ketones Urine UA NEGATIVE (NEGATIVE); Leukocyte Esterase Urine UA 2+ (NEGATIVE); Nitrite Urine UA NEGATIVE (Negative); Occult Blood Urine UA TRACE-INTACT (Negative); Protein Urine UA TRACE (Negative); Urobilinogen Urine UA 0.2 E.U./dL (0.2)
[2021-03-07 14:42] LABS: Alanine Aminotransferase 18 IU/L (<35); Albumin Globulin Ratio 2.5 (1.0-2.8); Alkaline Phosphatase 54 U/L (38-126); Aspartate Aminotransferase 32 IU/L (14-36); BUN Creatinine Ratio 16.3 (6-22); Bilirubin Total 0.6 mg/dL (0.2-1.3); Blood Urea Nitrogen 20 mg/dL (7-17); Calcium 9.4 mg/dL (8.4-10.2); Carbon Dioxide 25 mmol/L (22-32); Chloride 108 mmol/L (98-107); Cholesterol 103 mg/dL (140-199); Estimated Glomerular Filt Rate 43.3 mL/min (>60); Glucose 103 mg/dL (80-110); HDL Cholesterol 50 mg/dL (40-60); HEMOLYSIS < 15 (0-50); LDL Cholesterol Calculated 21 mg/dL (<100); Potassium 5.2 mmol/L (3.4-5.1); Sodium 141 mmol/L (137-145); Triglycerides 158 mg/dL (35-150)
[2021-03-07 14:47] LABS: Squamous Epithelial Cell Urine 5-10 /HPF (0-5/HPF); WBC Urine 5-10/HPF (0-5/HPF)
[2021-03-07 14:52] LABS: Culture Indicated Urine Cult Not Indicated
[2021-03-07 15:09] LABS: Creatinine Urine Random 170.5 mg/dL
[2021-03-07 15:15] LABS: Microalbumi Creatinin Ratio Ur 17.5 ug/mg CR (<30)
[2021-03-09 16:28] LABS: Metanephrine,Plasma 61.7 pg/mL (0.0-88.0)
[2021-03-10 16:20] LABS: Renin Activity 7.616 ng/mL/hr (0.167-5.380)
== END ==
PROVIDERS: Family Provider Nurse Practitioner Family; PCP Student in an Organized Health Care Education/Training Program; Referring Provider Internal Medicine Endocrinology, Diabetes & Metabolism; Visit Provider Internal Medicine Endocrinology, Diabetes & Metabolism
DX: E11.42 Type 2 diabetes mellitus with diabetic polyneuropathy (principal); Z79.4 Long term (current) use of insulin; N17.9 Acute kidney failure, unspecified
CPT/HCPCS: 36415; 80053; 80061; 81001; 82043; 82088; 82570; 83036; 83835; 84244

== ENCOUNTER → 2021-03-09 09:28 | Outpatient (CLI) | payer MEDICARE, MEDICAID, SELFPAY ==
[2021-03-12 06:11] LABS: Cortisol Fr ug/24hr urine 8 ug/24 hr (6-42); Cortisol, Free, Urine 9 ug/L (Undefined)
== END ==
PROVIDERS: Family Provider Nurse Practitioner Family; PCP Student in an Organized Health Care Education/Training Program; Referring Provider Internal Medicine Endocrinology, Diabetes & Metabolism; Visit Provider Internal Medicine Endocrinology, Diabetes & Metabolism
DX: E11.42 Type 2 diabetes mellitus with diabetic polyneuropathy (principal); Z79.4 Long term (current) use of insulin
CPT/HCPCS: 82530

== ENCOUNTER 2021-03-29 12:53 | Emergency (ER) | payer MEDICARE, MEDICAID, SELFPAY ==
[2021-03-29 13:15] VITALS: BP 108/58; PULSE 66; RESP 18; TEMP 36.6; O2SAT 94; BMI 35.4
--- NOTE | 2021-03-29 13:22 | DI.RAD.S_ITS ---
PROCEDURE: XR SACRUM COCCYX MIN 2V INDICATIONS: Trauma, fall TECHNIQUE: 3 views of the sacrum and coccyx acquired. COMPARISON: None. FINDINGS: Intestinal contents overlying the sacrum limits evaluation. There is no obvious fracture. IMPRESSION: Limited exam due to intestinal contents overlying the sacrum. No gross evidence of fracture. CT of the pelvis is recommended if there is concern for pelvic fracture Dictated by: Ronnie Leon M.D. on 03/29/2021 at 14:40 Approved by: Ronnie Leon M.D. on 03/29/2021 at 14:43
--- NOTE | 2021-03-29 15:47 | DI.CT.S_ITS ---
PROCEDURE: CT LUMBAR SPINE WO CON INDICATIONS: Fall, trauma TECHNIQUE: Noncontrast 3 mm thick sections acquired from the T12 level to the sacrum. Sagittal and coronal reformats were constructed. For radiation dose reduction, the following was used: automated exposure control. COMPARISON: Prior lumbar spine MRI and radiographs. FINDINGS: Postsurgical changes of L4-S1 posterior fixation by means of unilateral right pedicle screws and stabilizing siri. No acute complicating hardware feature identified. No evidence of hardware loosening. Stable appearing at degenerative anterolisthesis of L4 on L5 measuring up to 8 millimeters. Otherwise normal alignment. Vertebral body heights maintained. There is no evidence of fracture. Osseous spinal canal stenosis at L4-L5 and L5-S1 similar to comparison examinations. Varying degrees of neural foraminal stenosis worst at L4-L5 and L5-S1 also appears similar to the comparison studies. IMPRESSION: No acute finding. Postsurgical changes of L4-S1 posterior fixation with no acute complicating hardware feature. Dictated by: Ronnie Leon M.D. on 03/29/2021 at 16:34 Approved by: Ronnie Leon M.D. on 03/29/2021 at 16:37
[2021-03-29] MEDS: MORPHINE 4 MG/ML INJ IM (16:10)
[2021-03-29 16:18] VITALS: BP 140/62; PULSE 61; O2SAT 97
--- NOTE | 2021-03-31 10:41 | ED.BACK ---
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 patient states that she was about to get into her car when she felt her legs give away causing her to fall to the ground, striking her tailbone. Patient was unable to stand up right after, but was able to ambulate for and return to her apartment. Patient denies fever, chills, chest pain, shortness of breath, nausea, vomiting, lightheadedness, dizziness, syncope. Denies feeling lightheaded or dizzy prior to the fall. states that she has a history of myelopathy and radiculopathy, has had several prior similar episodes. denies numbness, tingling, weakness. Related Data Home Medications Medication Instructions Recorded Confirmed multivit with min-folic 1 tab PO DAILY 08/04/20 03/17/21 acid-lutein 400 mcg-250 mcg chewable tablet (Centrum Silver) semaglutide (Ozempic) 0.25 mg SUBCUT QWEEK 12/07/20 03/17/21 Previous Rx's Medication Instructions Recorded Lancets dev #100 09/17/12 Glucose: Test Strips 0 str SEE INSTRUCTIONS #100 12/04/12 cetirizine 10 mg tablet 10 mg PO QDAY #90 tab 05/28/17 diphenhydramine HCl 25 mg tablet 50 mg PO HS #180 tab 08/20/17 (Benadryl Allergy) insulin glargine 100 unit/mL 60 unit SUBCUT .HS #20 ml 10/22/20 subcutaneous solution metoprolol tartrate 25 mg tablet 25 mg PO BID 90 Days #180 tab 11/29/20 lisinopril 10 mg tablet (Zestril) 10 mg PO QDAY #90 tab 01/11/21 oxybutynin chloride 5 mg 5 mg PO DAILY #90 tab 01/19/21 tablet,extended release 24 hr pregabalin 100 mg capsule (Lyrica) 100 mg PO BID #60 cap 02/03/21 simvastatin 20 mg tablet 20 mg PO HS #90 tab 03/18/21 Allergies Allergy/AdvReac Type Severity Reaction Status Date / Time amitriptyline [AMITRIPTYLINE] Allergy Mild Verified 03/29/21 13:15 levofloxacin [LEVOFLOXACIN] Allergy Mild Verified 03/29/21 13:15 Sulfa (Sulfonamide Allergy Mild rash Verified 03/29/21 13:15 Antibiotics) [SULFA (SULFONAMIDE ANTIBIOTICS)] adhesive tape [ADHESIVE TAPE] AdvReac Mild rash, Verified 03/29/21 13:15 adheses and pulls off flesh steroid Allergy Mild Uncoded 03/17/21 13:51 Review of Systems <Rehan Melo PA-C - Last Filed: 03/31/21 11:10> Constitutional Constitutional: Denies chills, Denies fatigue, Denies fever(s), Denies frequent falls, Denies lethargy and Denies weakness Eyes Eyes: Denies change in vision, Denies eye discharge, Denies irritation and Denies loss of vision ENT Ears, Nose, Mouth, and Throat: Denies change in voice, Denies dizziness, Denies neck pain, Denies sore throat and Denies throat swelling Cardiovascular Cardiovascular: Denies chest pain, Denies irregular heart rhythm, Denies lightheadedness, Denies palpitations, Denies dyspnea, Denies dyspnea on exertion and Denies orthopnea Respiratory Respiratory: Denies cough, Denies dyspnea, Denies dyspnea on exertion and Denies wheezing Gastrointestinal Gastrointestinal: Denies abdominal pain, Denies change in bowel habits, Denies diarrhea, Denies nausea and Denies vomiting Musculoskeletal Musculoskeletal: Reports back pain, Denies neck pain, Denies numbness, Denies radiating pain into limb and Denies tingling Integumentary/Breasts Skin/Breast: Denies pruritus, Denies erythema, Denies rash and Denies wounds Neurologic Neurologic: Denies behavioral changes, Denies confusion, Denies dizziness, Denies frequent falls, Denies loss of vision, Denies numbness, Denies tingling and Denies weakness Psychiatric Psychiatric: Denies anxiety, Denies behavioral changes, Denies confusion, Denies depression, Denies homicidal ideation and Denies suicidal ideation Endocrine Endocrine: Denies fatigue, Denies flushing and Denies palpitations Hematologic/Lymphatic Hematologic/Lymphatic: Denies easy bruising Allergic/Immunologic Allergic/Immunologic: Denies urticaria, Denies throat swelling and Denies wheezing Patient History <Rehan Melo PA-C - Last Filed: 03/31/21 11:10> Medical History Biliary obstruction Chronic pain syndrome (05/20/15) Closed left femoral fracture Non-ST elevation myocardial infarction (NSTEMI) Parotitis Polysubstance abuse Staphylococcus aureus bacteremia Type 2 diabetes mellitus with diabetic polyneuropathy (05/20/15) Surgical History History of carpal tunnel repair History of knee replacement History of repair of hiatal hernia History of spinal fusion S/P total abdominal hysterectomy and bilateral salpingo-oophorectomy Status post appendectomy Status post delivery Status post hemorrhoidectomy Status post laparoscopic cholecystectomy Status post tubal ligation Family History Father Hypertension Stroke Mother Cancer Social History Smoking Status: Current every day smoker Smoking Status: Current every day smoker alcohol intake frequency: 0-2 drinks per day Substance Use Type: marijuana Exam <Rehan Melo PA-C - Last Filed: 03/31/21 11:10> Initial Vital Signs Initial Vital Signs: Vital Signs Temperature 97.9 F 03/29/21 13:15 Pulse Rate 66 03/29/21 13:15 Respiratory Rate 18 03/29/21 13:15 Blood Pressure 108/58 L 03/29/21 13:15 Pulse Oximetry 94 03/29/21 13:15 Const General: cooperative HENMT Head: normocephalic and atraumatic Ears: external ears normal and TM's normal bilaterally Nose: external nose normal and No nasal discharge Face and sinus: sinuses nontender, face symmetric, no sinus tenderness and No dry mucous membranes Mouth: oral mucosae normal and moist mucous membranes Teeth and gingiva: dentition normal Throat: tonsils normal and uvula midline Eyes General: appearance normal, both eyes and all related structures Eyelids: eyelids normal Conjunctivae: conjunctivae normal Sclera: sclerae normal Pupils: PERRL EOM: EOM intact bilaterally Neck Neck: normal visual inspection, trachea midline, No lymphadenopathy, No midline deformity and No JVD Lymphatic: No lymphedema Chest Chest: normal inspection of the chest Resp Effort & Inspection: normal respiratory effort, able to speak in complete sentences, no respiratory distress and no use of accessory muscles Auscultation: clear to auscultation bilaterally, no rales, no rhonchi and no wheezes Cardio Rate: regular rate Rhythm: regular rhythm Heart Sounds: no click, no gallops, no murmurs and no rubs Pulses: normal peripheral pulses GI Inspection: non-distended Palpation: soft, no hepatosplenomegaly, No guarding, No pulsatile mass and No tender Auscultation: normal bowel sounds Back/Spine/Pelvis Back: No CVA tenderness Cervical Spine: cervical ROM normal and No pain with cervical ROM Thoracic/Lumbar Spine: thoracic and lumbar spine normal to inspection Sacrum: no swelling and tenderness Coccyx: no swelling and tenderness Other: tenderness to palpation of the sacrum, coccyx. No swelling. Skin General: no rashes or lesions noted, No jaundice and No petechiae Neuro General: patient alert, patient oriented x3, gait normal and no focal motor deficits Speech: speech normal Other: Neurovascularly intact. Neurological exam normal. CN 1 through 12 intact. Gait normal. Negative pronator drift, negative rapid alternating movements, negative [id number]. strength and sensation intact. Full range of motion. Extrem General: full ROM, no clubbing, cyanosis or edema, no pedal edema and no calf tenderness Psych Appearance: well kempt Mental Status: mental status grossly normal Attitude: cooperative Thought Content: normal and suicidality Judgment: judgment good <Mera Ledesma DO - Last Filed: 04/01/21 08:24> Initial Vital Signs Initial Vital Signs: Vital Signs Temperature 97.9 F 03/29/21 13:15 Pulse Rate 66 03/29/21 13:15 Respiratory Rate 18 03/29/21 13:15 Blood Pressure 108/58 L 03/29/21 13:15 Pulse Oximetry 94 03/29/21 13:15 Course <Rehan Melo PA-C - Last Filed: 03/31/21 11:10> Course Course Narrative: Pain improved with morphine. X-ray study was limited, ordered CT lumbar spine. No acute findings from CT lumbar spine. Will discharge home with ED return precautions, spine f/u. Orders Ordered: Discontinued Medications Morphine Sulfate (Morphine 4 Mg/Ml Inj) 4 mg IM NOW ONE Stop: 03/29/21 15:48 Last Admin: 03/29/21 16:10 Dose: 4 mg Documented by: BRIDGET <Mera Ledesma DO - Last Filed: 04/01/21 08:24> Orders Ordered: Discontinued Medications Morphine Sulfate (Morphine 4 Mg/Ml Inj) 4 mg IM NOW ONE Stop: 03/29/21 15:48 Last Admin: 03/29/21 16:10 Dose: 4 mg Documented by: BRIDGET MDM - Back Pain/Injury <Rehan Melo PA-C - Last Filed: 03/31/21 11:10> Medical Records Attestation: I reviewed the patient's medical records. Imaging Data CT Lumbar spine: Radiologist's Impression: PROCEDURE:? CT LUMBAR SPINE WO CON ? INDICATIONS:? Fall, trauma ? TECHNIQUE:? Noncontrast 3 mm thick sections acquired from the T12 level to the sacrum.? Sagittal and coronal reformats were constructed.? For radiation dose reduction, the following was used:? automated exposure control.? ? COMPARISON:? Prior lumbar spine MRI and radiographs. ? FINDINGS:? ? Postsurgical changes of L4-S1 posterior fixation by means of unilateral right pedicle screws and stabilizing siri.? No acute complicating hardware feature identified.? No evidence of hardware loosening.? Stable appearing at degenerative anterolisthesis of L4 on L5 measuring up to 8 millimeters.? Otherwise normal alignment.? Vertebral body heights maintained.? There is no evidence of fracture.? Osseous spinal canal stenosis at L4-L5 and L5-S1 similar to comparison examinations.? Varying degrees of neural foraminal stenosis worst at L4-L5 and L5-S1 also appears similar to the comparison studies. ? IMPRESSION:? No acute finding.? Postsurgical changes of L4-S1 posterior fixation with no acute complicating hardware feature. ? ? Dictated by: Ronnie Leon M.D. on 03/29/2021 at 16:34 ? ? Approved by: Ronnie Leon M.D. on 03/29/2021 at 16:37 ? Sacrum and coccyx x-ray: Radiologist's Impression: PROCEDURE:? XR SACRUM COCCYX MIN 2V ? INDICATIONS:? Trauma, fall ? TECHNIQUE:? 3 views of the sacrum and coccyx acquired.? ? COMPARISON:? None. ? FINDINGS:? ? Intestinal contents overlying the sacrum limits evaluation.? There is no obvious fracture. ? IMPRESSION:? Limited exam due to intestinal contents overlying the sacrum.? No gross evidence of fracture.? CT of the pelvis is recommended if there is concern for pelvic fracture ? ? Dictated by: Ronnie Leon M.D. on 03/29/2021 at 14:40 ? ? Approved by: Ronnie Leon M.D. on 03/29/2021 at 14:43 ? 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 Concern for fractures, dislocations versus sprain/ strain. Neurological exam reassuring. Will obtain x-rays. Will give morphine for pain control. Likely discharge home. Discharge Plan Departure Patient Disposition: Home Clinical Impression: Back pain Qualifiers: Back pain location: low back pain Chronicity: acute Back pain laterality: midline Sciatica presence: unspecified whether sciatica present Qualified Code(s): M54.5 - Low back pain Instructions: DI for Low Back Pain Activity Restrictions/Additional Instructions: Your x-ray and CT of the lumbar spine did not show any fractures or dislocations. You can take Tylenol for pain. Follow-up with Dr. Kirk or other patient account specialist. Return to the ED if worsening symptoms, numbness, tingling, weakness. Prescriptions: No Action Lancets Qty: 100 RF: 0 Glucose: Test Strips 0 str SEE INSTRUCTIONS Qty: 100 RF: 2 cetirizine 10 MG tablet 10 mg PO QDAY Qty: 90 RF: 3 diphenhydramine HCl [Benadryl Allergy] 25 MG tablet 50 mg PO HS Qty: 180 RF: 1 insulin glargine 100 unit/mL solution 60 unit SUBCUT .HS Qty: 20 RF: 6 metoprolol tartrate 25 mg tablet 25 mg PO BID 90 Days Qty: 180 RF: 1 lisinopril [Zestril] 10 mg tablet 10 mg PO QDAY Qty: 90 RF: 2 pregabalin [Lyrica] 100 mg capsule 100 mg PO BID Qty: 60 RF: 5 simvastatin 20 mg tablet 20 mg PO HS Qty: 90 RF: 1 Ozempic 0.25 mg or 0.5 mg(2 mg/1.5 mL) pen injector 0.25 mg SUBCUT QWEEK RF: 0 oxybutynin chloride 5 mg tablet extended release 24hr 5 mg PO DAILY Qty: 90 RF: 3 Centrum Silver 400-250 mcg Tablet,Chewable 1 tab PO DAILY RF: 0 Referrals: Tigre High MD [Primary Care Provider] - <Mera Ledesma DO - Last Filed: 04/01/21 08:24> Cosign ED Attending Vishature Attestation: I was immediately available in the department for consultation. Documentation has been reviewed. I agree with assessment and plan.
== END 2021-03-29 17:09 | disposition home or self-care (01) ==
PROVIDERS: Emergency Provider Student in an Organized Health Care Education/Training Program; Family Provider Nurse Practitioner Family; PCP Student in an Organized Health Care Education/Training Program
DX: M54.5 Low back pain (principal); W19.XXXA Unspecified fall, initial encounter
CPT/HCPCS: 72131; 72220; 96372; 99283; 99284; J2270

== ENCOUNTER → 2021-05-26 16:02 | Outpatient (CLI) | payer MEDICARE, MEDICAID, SELFPAY ==
[2021-05-26 17:50] LABS: BUN Creatinine Ratio 16.7 (6-22); Blood Urea Nitrogen 19 mg/dL (7-17); Calcium 10.3 mg/dL (8.4-10.2); Carbon Dioxide 26 mmol/L (22-32); Chloride 104 mmol/L (98-107); Estimated Glomerular Filt Rate 47.3 mL/min (>60); Glucose 110 mg/dL (80-110); HEMOLYSIS < 15 (0-50); Phosphorous 5.5 mg/dL (2.8-4.1); Potassium 4.8 mmol/L (3.4-5.1); Sodium 141 mmol/L (137-145); Uric Acid 7.1 mg/dL (2.5-6.2)
[2021-05-26 18:01] LABS: Vitamin D 25 Hydroxy (D3) 42.3 ng/mL (30.0-100.0)
[2021-05-26 18:25] LABS: Add Manual Diff / Slide Review NO; Basophils Absolute Auto 100 /uL (0-100); Basophils Percent Auto 1.1 % (0-2); Eosinophils Absolute Auto 400 /uL (0-450); Eosinophils Percent Auto 4.4 % (2-4); Hematocrit 41.3 % (36-46); Hemoglobin 13.8 g/dL (12.0-16.0); Lymphocytes Absolute Auto 2900 /uL (1100-4500); Lymphocytes Percent Auto 33.3 % (25-40); Mean Corpuscular HGB Conc 33.4 % (30-36); Mean Corpuscular Hemoglobin 29.5 PG (26-34); Mean Corpuscular Volume 88.1 fL (80-100); Monocytes Absolute Auto 400 /uL (0-900); Monocytes Percent Auto 4.4 % (3-14); Neutrophils Absolute Auto 4900 /uL (1500-7000); Neutrophils Percent Auto 56.8 % (50-75); Platelet Count 148 X10^3/uL (150-400); Red Blood Cell Count 4.69 X10^6/uL (4.0-5.2); White Blood Cell Count 8.6 X10^3/uL (4.5-11.0)
[2021-05-27 07:43] LABS: Parathyroid Hormone Int 32 pg/mL (15-65)
== END ==
PROVIDERS: Family Provider Nurse Practitioner Family; PCP Student in an Organized Health Care Education/Training Program; Referring Provider Internal Medicine Nephrology; Visit Provider Internal Medicine Nephrology
DX: N18.31 Chronic kidney disease, stage 3a (principal)
CPT/HCPCS: 36415; 80048; 82306; 83970; 84100; 84550; 85025

== ENCOUNTER → 2021-05-27 17:39 | Outpatient (CLI) | payer MEDICARE, MEDICAID, SELFPAY ==
[2021-05-27 18:59] LABS: Creatinine Urine Random 125.7 mg/dL
[2021-05-27 19:04] LABS: Microalbumi Creatinin Ratio Ur 24.6 ug/mg CR (<30); Microalbumin Urine Random 3.1 mg/dL (0-1.6)
== END ==
PROVIDERS: Family Provider Nurse Practitioner Family; PCP Student in an Organized Health Care Education/Training Program; Referring Provider Internal Medicine Nephrology; Visit Provider Internal Medicine Nephrology
DX: N18.31 Chronic kidney disease, stage 3a (principal)
CPT/HCPCS: 82043; 82570

== ENCOUNTER → 2021-07-11 14:27 | Outpatient (CLI) | payer MEDICARE, MEDICAID, SELFPAY ==
[2021-07-11 16:30] LABS: COVID19 -Nasal RAPID Negative (Negative)
== END ==
PROVIDERS: Family Provider Nurse Practitioner Family; PCP Student in an Organized Health Care Education/Training Program; Visit Provider Nurse Practitioner Family
DX: Z20.822 Contact with and (suspected) exposure to COVID-19 (principal)
CPT/HCPCS: 87635; C9803

== ENCOUNTER → 2021-07-14 10:33 | Outpatient (CLI) | payer MEDICARE, MEDICAID, SELFPAY ==
--- NOTE | 2021-07-15 18:55 | DI.NM.S_ITS ---
DATE OF SERVICE: 07/14/2021 PROCEDURE PERFORMED: Pharmacologic vasodilator stress and rest myocardial perfusion imaging with gating to assess ejection fraction and regional wall motion. ORDERING PROVIDER: Dr. Donnell Ma. INDICATIONS: The patient is a 71-year-old diabetic female with atypical chest discomfort. PHARMACOLOGIC CARDIAC STRESS: Per protocol, 0.4 mg of regadenoson was infused with a normal hemodynamic response. She had no chest discomfort. Her resting ECG shows sinus rhythm with frequent PACs but normal ST segments. There are no significant ST-segment shifts or other arrhythmias with stress. Per protocol, 25.6 millicuries of technetium-99m Myoview was injected and she was imaged 20 minutes later using a gated SPECT acquisition protocol. The day prior, she had been injected with 25.5 millicuries of technetium-99m Myoview and imaged 20 minutes following injection, again using a gated SPECT acquisition protocol. FINDINGS: 1. Raw data: There is fair-poor myocardial tracer uptake with moderate breast shadows noted and probable mild motion, more prominent on the post-stress images. No prone images were able to be obtained. The lung/heart ratio was normal at 0.35, with a normal TID ratio of 0.74. 2. Quantitated gated SPECT: Post-stress ejection fraction is estimated at 79% without any focal wall motion abnormality although image quality is extremely poor. Yet, the inferior wall appears to have brisk contractility. The resting images also are fairly poor quality but show a similar contraction pattern with an ejection fraction of 73% with a normal resting end-diastolic volume of 82 mL. 3. The post stress supine images are of fairly poor quality and show a moderate perfusion defect throughout the inferior wall but sparing the distal inferoapex. There is mildly reduced tracer activity in the entire interventricular septum. There are no prone images to assess for attenuation artifact. The resting images show some improvement in the inferior wall defect but the septal defect remains unchanged. IMPRESSION: 1. Probable abnormal myocardial perfusion study but with markedly reduced specificity because of poor image quality and the absence of the prone images. 2. There is a partially reversible perfusion defect in the inferior wall in a pattern that would be consistent with diaphragmatic attenuation artifact although there are no prone images available. Given the reversibility of the defect, a moderate amount of ischemia cannot be excluded in the inferior wall, but, again, specificity is low because of the marginal image quality. 3. Normal left ventricular systolic function without any focal wall motion abnormality. 4. No angina or ECG evidence of ischemia with pharmacologic vasodilator stress. She had frequent PACs at rest and with stress but no concerning arrhythmias. Francis Shae - ASHLEY/megan/frandy doc#: [id number]/job#: [id number] dd: 07/15/2021 17:04:00 dt: 07/15/2021 18:35:00 DICTATING MD/COPIES TO: Danish Hoffman MD; Leonid Ma MD COPIES MNE: AMARI;
== END ==
PROVIDERS: Family Provider Nurse Practitioner Family; PCP Student in an Organized Health Care Education/Training Program; Referring Provider Internal Medicine Cardiovascular Disease; Visit Provider Internal Medicine Cardiovascular Disease
DX: R07.2 Precordial pain (principal); E11.9 Type 2 diabetes mellitus without complications
CPT/HCPCS: 78452; 93017; A9502; J2785

== ENCOUNTER → 2021-09-26 09:54 | Outpatient (CLI) | payer MEDICARE, MEDICAID, SELFPAY ==
[2021-09-26 13:45] LABS: Blood Urea Nitrogen 26 mg/dL (7-17); Calcium 9.5 mg/dL (8.4-10.2); Carbon Dioxide 28 mmol/L (22-32); Chloride 103 mmol/L (98-107); Estimated Glomerular Filt Rate 47.6 mL/min (>60); Glucose 85 mg/dL (80-110); HEMOLYSIS < 15 (0-50); Magnesium 1.4 mg/dL (1.6-2.3); Phosphorous 4.3 mg/dL (2.8-4.1); Potassium 4.5 mmol/L (3.4-5.1); Sodium 139 mmol/L (137-145); Uric Acid 7.1 mg/dL (2.5-6.2)
[2021-09-26 14:39] LABS: Vitamin D 25 Hydroxy (D3) 34.2 ng/mL (30.0-100.0)
[2021-09-26 17:46] LABS: Creatinine Urine Random 60.2 mg/dL
[2021-09-26 17:51] LABS: Microalbumi Creatinin Ratio Ur 23.2 ug/mg CR (<30); Microalbumin Urine Random 1.4 mg/dL (0-1.6)
[2021-09-27 08:36] LABS: Parathyroid Hormone Int 39 pg/mL (15-65)
== END ==
PROVIDERS: Family Provider Nurse Practitioner Family; PCP Student in an Organized Health Care Education/Training Program; Referring Provider Internal Medicine Nephrology; Visit Provider Internal Medicine Nephrology
DX: N18.31 Chronic kidney disease, stage 3a (principal)
CPT/HCPCS: 36415; 80048; 82043; 82306; 82570; 83735; 83970; 84100; 84550

== ENCOUNTER → 2021-09-28 12:26 | Outpatient (CLI) | payer MEDICARE, MEDICAID, SELFPAY ==
--- NOTE | 2021-09-28 | DI.RAD.S_ITS ---
PROCEDURE: XR SHOULDER LT MIN 2V INDICATIONS: LEFT SOULDER PAIN TECHNIQUE: 3 views of the shoulder were acquired. COMPARISON: [facility], CR, XR SHOULDER RT MIN 2V, 08/04/2020, 10:26. [facility], CR, SHOULDER MINIMUM 2VIEW RIGHT, 08/02/2014, 15:05. FINDINGS: Bones: No fractures or dislocations. No suspicious bony lesions. Mild degenerative joint disease at the acromioclavicular and glenohumeral joint. Visualized ribs appear intact. Soft tissues: No suspicious soft tissue calcifications. IMPRESSION: Mild degenerative joint disease. Dictated by: Ranulfo Bustillos M.D. on 09/28/2021 at 17:26 Approved by: Ranulfo Bustillos M.D. on 09/29/2021 at 12:07
== END ==
PROVIDERS: Family Provider Nurse Practitioner Family; PCP Student in an Organized Health Care Education/Training Program; Referring Provider Internal Medicine Nephrology; Visit Provider Internal Medicine Nephrology
DX: M25.512 Pain in left shoulder (principal); M19.012 Primary osteoarthritis, left shoulder
CPT/HCPCS: 73030

== ENCOUNTER → 2021-11-18 14:02 | Outpatient (CLI) | payer MEDICARE, MEDICAID, SELFPAY ==
[2021-11-18 15:08] LABS: Cholesterol 125 mg/dL (140-199); HDL Cholesterol 61 mg/dL (40-60); LDL Cholesterol Calculated 33 mg/dL (<100); Triglycerides 155 mg/dL (35-150)
== END ==
PROVIDERS: Family Provider Nurse Practitioner Family; PCP Student in an Organized Health Care Education/Training Program; Referring Provider Internal Medicine Cardiovascular Disease; Visit Provider Internal Medicine Cardiovascular Disease
DX: E78.5 Hyperlipidemia, unspecified (principal)
CPT/HCPCS: 36415; 80061